=== PATIENT | male | born 1970 | race American Indian/Alaskan Native ===

== ENCOUNTER 2018-11-28 21:09 | Emergency (ER) | payer MEDICARE ==
[2018-11-28 23:41] LABS: Basophils # (Auto) 0.1 K/mm3 (0.0-0.1); Basophils % (Auto) 0.7 % (0.0-1.8); Eosinophils # (Auto) 0.1 K/mm3 (0.0-0.4); Eosinophils % (Auto) 0.5 % (0.0-4.3); Hematocrit 25.1 % (35.5-45.6); Hemoglobin 8.1 gm/dl (11.8-15.2); Lymphocytes # (Auto) 0.8 K/mm3 (1.2-5.4); Lymphocytes % (Auto) 8.2 % (13.4-35.0); Mean Corpuscular HGB Conc 32 % (32-34); Mean Corpuscular Volume 89 fl (84-94); Monocytes # (Auto) 0.9 K/mm3 (0.0-0.8); Monocytes % (Auto) 8.9 % (0.0-7.3); Platelet Count 214 K/mm3 (140-440); Red Blood Count 2.84 M/mm3 (3.65-5.03); Red Cell Distribution Width 18.7 % (13.2-15.2)
[2018-11-28 23:54] LABS: Albumin 3.4 g/dL (3.9-5); Calcium 11.7 mg/dL (8.4-10.2)
--- NOTE | 2018-11-28 23:55 | Cat Scan Report ---
CT HEAD WITHOUT CONTRAST INDICATION : right leg weakness. TECHNIQUE: Axial, coronal and sagittal CT imaging was performed from the skull apex through the skul l base without contrast. All CT scans at this location are performed using CT dose reduction for ALA RA by means of automated exposure control. COMPARISON: None available. FINDINGS: PARENCHYMA: No mass, midline shift, hemorrhage, extraaxial collection or acute territorial infarctio n. VENTRICLES: Symmetric and normal in size. SOFT TISSUES: Soft tissues including the orbits appear normal. BONES: No acute osseous abnormality. SINUSES: No significant abnormality. ADDITIONAL FINDINGS: None. IMPRESSION: No acute intracranial abnormality. Signer Name: Arnoldo Brody MD Signed: 11/28/2018 11:51 PM Workstation Name: [id number]
[2018-11-29] MEDS ORDERED: FLEXERIL PO ONE (00:02)
--- NOTE | 2018-11-29 00:22 | Emergency Department Report ---
ED General Adult HPI - General Chief complaint: Extremity Problem,Nontraumatic Stated complaint: LEG PAIN Time Seen by Provider: 11/28/18 22:14 Source: patient, EMS Mode of arrival: Stretcher Limitations: Physical Limitation - History of Present Illness Initial comments: 47 y.o with back pain radiating to the left leg severe intermittent for the past two weeks, constant for the past 5 days, and accompanied by paralysis for the past two days. no fever, chills or night sweats. h/o esrd on dialysis, right foot osteomyolitis. - Related Data Allergies Allergy/AdvReac Type Severity Reaction Status Date / Time No Known Allergies Allergy Unverified 11/28/18 22:10 ED Review of Systems ROS: Stated complaint: LEG PAIN Other details as noted in HPI Cardiovascular: denies: chest pain Endocrine: denies: flushing Gastrointestinal: denies: nausea Musculoskeletal: back pain ED Past Medical Hx - Past Medical History Hx Hypertension: Yes Hx Diabetes: Yes Hx Renal Disease: Yes (HD MWF) - Surgical History Additional Surgical History: fistula, L eye - Social History Smoking Status: Never Smoker Substance Use Type: None ED Physical Exam - General Limitations: Physical Limitation General appearance: alert, in no apparent distress - Head Head exam: Present: atraumatic, normocephalic - Eye Eye exam: Present: normal appearance Pupils: Present: normal accommodation - ENT ENT exam: Present: normal exam - Neck Neck exam: Present: normal inspection - Respiratory Respiratory exam: Present: normal lung sounds bilaterally - Cardiovascular Cardiovascular Exam: Present: regular rate, normal rhythm - GI/Abdominal GI/Abdominal exam: Present: soft - Extremities Exam Extremities exam: Present: tenderness (right lower ext) - Back Exam Back exam: Present: paraspinal tenderness, vertebral tenderness (l 4,5,s1) ED Course Vital Signs 11/28/18 11/28/18 11/28/18 21:58 22:01 22:04 Temperature 98.5 F Pulse Rate 82 82 Respiratory 18 20 Rate Blood Pressure 119/37 119/37 O2 Sat by Pulse 79 L 97 97 Oximetry 11/28/18 11/28/18 11/28/18 22:15 22:31 22:33 Temperature 98.9 F Pulse Rate 81 82 Respiratory 14 16 Rate Blood Pressure 120/93 144/94 O2 Sat by Pulse 95 96 Oximetry 11/28/18 11/29/18 11/29/18 22:45 00:30 01:45 Temperature Pulse Rate 82 Respiratory 19 Rate Blood Pressure 144/94 111/61 102/58 O2 Sat by Pulse 94 98 97 Oximetry 11/29/18 11/29/18 11/29/18 03:15 03:41 04:45 Temperature Pulse Rate Respiratory Rate Blood Pressure 102/58 91/58 O2 Sat by Pulse 96 97 98 Oximetry ED Medical Decision Making - Lab Data Result diagrams: 11/28/18 23:31 11/28/18 23:31 - Medical Decision Making unable to sit d/t pain, unable to move left leg much d/t pain. ct lspine showed diskitis, osteo, transferred to [facility] for neurosurg, higher level of care. Critical care attestation.: If time is entered above; I have spent that time in minutes in the direct care of this critically ill patient, excluding procedure time. ED Disposition Clinical Impression: Discitis of lumbosacral region, Osteomyelitis of lumbar vertebra Disposition: [id number]/TX-[id number] ANOTHER TYPE HLTHCARE Is pt being admited?: No Does the pt Need Aspirin: No Condition: Stable Referrals: [facility] [place] MD LAURA [Primary Care Provider] - 3-5 Days
--- NOTE | 2018-11-29 04:12 | Cat Scan Report ---
CT lumbar spine wo con INDICATION / CLINICAL INFORMATION: Lower extremity weakness and back pain. TECHNIQUE: All CT scans at this location are performed using CT dose reduction for ALARA by means of automated e xposure control. COMPARISON: None available. FINDINGS: There is marked abnormality centered at the L5-S1 disc space. The majority of the S1 vertebral body i s destroyed. There is extension into the first sacral foramen. There is also milder destruction invol ving the inferior endplate of L5, more prominent anteriorly. There is associated central canal and bi lateral foraminal stenosis. Mild paravertebral extension is present. There are large Schmorl's nodes involving the superior endplates of L4 and L5. Smaller Schmorl's node s are noted involving the superior endplates of L1-L3. The other disc spaces are unremarkable. Extens savannah vascular calcifications may be related to chronic renal disease. IMPRESSION: 1. Severe discitis at L5-S1 with associated osteomyelitis involving the S1, and to a lesser extent, L 5 vertebral bodies. 2. Multiple Schmorl's nodes type changes involving multiple superior endplates. RECOMMENDATION: MRI of the lumbar spine without and with intravenous gadolinium may be helpful in fur ther evaluation. CRITICAL RESULT: Time of Discovery: 3:05 AM Time of Communication: 3:07 AM Licensed Practitioner Receiving Report: Dr. Magaña Signer Name: Jordan Lobo MD Signed: 11/29/2018 4:08 AM Workstation Name: [email or web address]
[2018-11-29] MEDS ORDERED: VANCOMYCIN/NS 1 GM/250 ML 1 GM/250 ML BAG IV ONE (04:30)
[2018-11-29] MEDS ORDERED: NACL 0.9% 500 ML 500 ML IV ONE (04:46)
[2018-11-29 06:27] VITALS: BP 113/62
== END 2018-11-29 06:27 | disposition other institution (70) ==
LOC: ED 21:09
DX: M46.46 Discitis, unspecified, lumbar region (principal); M86.8X7 Other osteomyelitis, ankle and foot; I12.0 Hypertensive chronic kidney disease with stage 5 chronic kidney disease or end stage renal disease; N18.6 End stage renal disease; E11.22 Type 2 diabetes mellitus with diabetic chronic kidney disease; Z99.2 Dependence on renal dialysis
CPT/HCPCS: 36415; 70450; 72131; 80053; 82550; 85025; 96365; 99285; J3370; J7040